=== PATIENT | female | born 1970 | race Caucasian/White ===

== ENCOUNTER 2024-03-01 11:24 | Outpatient (CLI) | payer BC, SELFPAY ==
--- OUTSIDE RECORDS SUMMARY | 2024-03-01 11:27 | XMS_ITS ---
Author Organization [facility] Address [address] [place] [address] Care Team Providers Care Marine Consultant Name Role Phone None, No PCP Primary Care Provider Mariela Love Unavailable [phone] Kimani Alcantara Unavailable [phone] REASON FOR VISIT Colonoscopy referral Encounters Encounter Location Date Provider Diagnosis [facility] [address] [place] [address] 02/27/2024 Kimani Alcantara Plan Of Treatment No Information Progress Notes * Connie GOODEN DDOB:1970 (53 yo F)Acc No.[id number]:02/27/2024 Patient:?Connie GOODEN :1970???Age:53 Y???Sex:Female [facility] [place] [place], [address] * true * Date:? 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
--- OUTSIDE RECORDS SUMMARY | 2024-03-01 11:28 | XMS_ITS | Clinical Summary ---
Author Organization [facility] Address [address] [place] [address] Care Team Providers Care Whiskey Filterer Name Role Phone Librado Nelson MD Primary Care Provider [phone] Family History Medical History Relation Comments Breast Cancer Maternal Grandmother Relation Status Comments Maternal Grandmother Social History Tobacco Use Types Packs/Day Years Used Date Smoking Tobacco: Never Assessed Adolescent Education Answer Date Record ed Getting School Help Needed Not on file 01/08 Comments Unknown Sex and Gender Information Value Date Recorded Sex Assigned at Not on file Legal Sex Female 5:54 PM CDT Gender Identity Not on file Sexual Orientation Not on file Plan of Treatment Health Maintenance Due Date Last Done Comments ADVANCE CARE PLANNING 1970 ANNUAL REVIEW OF HM ORDERS 1972 CT COLONOGRAPHY 1972 FIT 1972 FLEX SIG 1972 GLUCOSE 1972 sDNA (Cologuard) 1972 COLONOSCOPY 1982 COLORECTAL CANCER SCREENING 1982 HIV SCREENING 09/10/1987 HEPATITIS C SCREENING 1990 HEPATITIS B IMMUNIZATION (1 of 3 - 19+ 3-dose series) 09/10/1991 LIPID 2012 DTAP/TDAP/TD IMMUNIZATION (2 - Td or Tdap) 07/31/2021 08/01/2011 ZOSTER IMMUNIZATION (1 of 2) 2022 YEARLY PREVENTIVE VISIT 02/16/2023 02/16/2022, 01/20 PHQ-2 (once per calendar year) 2023 COVID-19 Vaccine (3 - season) 2023 09/28/2020, 08/31/2020 INFLUENZA VACCINE (#1) 2023 PAP 01/21/2024 01/20/2021, 01/20/2021 MAMMO SCREENING 03/26/2024 03/26/2022, 02/17, 02/07/2020, Additional history exists RSV VACCINE (1 - 1-dose 75+ series) 09/10/2047 HPV IMMUNIZATION Aged Out No longer e ligible based on patient's age to complete this topic MENINGITIS IMMUNIZATION Aged Out No l onger eligible based on patient's age to complete this topic Pneumococcal Vaccine: Pediatrics (0 to 5 Years) and At-Risk Patients (6 to 64 Years) Aged Out No longer eligible based on patient's age to complete this topic RSV MONOCLONAL ANTIBODY Aged Out No l onger eligible based on patient's age to complete this topic Procedures Procedure Name Priority Date/Time Associated Diagnosis Comments MA SCREENING DIGITAL BILATERAL Routine 03/26/2022 7:13 AM ELECTRONIC ORGAN TECHNICIAN Visit for screening from Last 3 Months or Most Recently Relevant to Health Maintenance Results * MA SCREENING DIGITAL BILATERAL (03/26/2022 7:13 AM ELECTRONIC ORGAN TECHNICIAN) Anatomical Region Laterality Modality Breast Bilateral Mammography Impressions 03/29/2022 8:21 AM ELECTRONIC ORGAN TECHNICIAN IMPRESSION: ACR BI-RADS Category 1: Negative RECOMMENDED FOLLOW-UP: Annual routine screening mammogram The results and recommendations of this examination will be communicated to the patient. DO Blanca You 03/29/2022 8:21 AM ELECTRONIC ORGAN TECHNICIAN BILATERAL FULL FIELD DIGITAL SCREENING MAMMOGRAM Performed on: 03/26/22 Compared to: 03/16/2021, 02/07/2020, 11/02/2018, 06/08/2017, 02/26/2015, and 02/14/2014 Technique: This study was evaluated with the assistance of Computer-Aided Detection. Findings: The breasts are heterogeneously dense, which may obscure small masses. ??There is no radiographic evidence of malignancy. Librado Nelson MD IMG MAMMOGRAPHY ORDERABLES Final Result from Last 3 Months or Most Recently Relevant to Health Maintenance Insurance BC OUT OF STATE Care Teams Whiskey Filterer Relationship Specialty Start Date End Date Librado Nelson MD [facility] [address] [place], [place] [id number] PCP - General Family Practice 12/04/19
--- OUTSIDE RECORDS SUMMARY | 2024-03-01 11:28 | XMS_ITS | Clinical Summary ---
Author Organization [facility] Address [place], [place] [address] Care Team Providers Care Environmental Health And Safety Manager Name Role Phone Pcp, No Primary Care Provider Unavailabl e Allergies No known active allergies Medications Medication Sig Dispensed Refills Start Date End Date Status BLISOVI FE 1.5/30, 28, 1.5 mg-30 mcg (21)/75 mg (7) tablet TK 1 T PO QD 4 03/28/2018 Active Active Problems No known active problems Immunizations Name Administration Dates Next Due Tdap 08/01/2011 Social History Tobacco Use Types Packs/Day Years Used Date Smoking Tobacco: Never Smokeless Tobacco: Never Alcohol Use Standard Drinks/Week Comments Yes 2 (1 standard drink = 0.6 oz pur e alcohol) PHQ-2 Answer Date Recorded PHQ-2 Score 0 06/19/2018 Sex and Gender Information Value Date Recorded Sex Assigned at Not on file Gender Identity Not on file Sexual Orientation Not on file Obstetrics History Last Filed Vital Signs Vital Sign Reading Time Taken Comments Blood Pressure 110/70 04/07/2018 7:55 AM AUTOMATION AND CONTROLS INSTRUCTOR Pulse 72 04/07/2018 7:55 AM AUTOMATION AND CONTROLS INSTRUCTOR Temperature - - Respiratory Rate 14 04/07/2018 7:55 AM AUTOMATION AND CONTROLS INSTRUCTOR Oxygen Saturation - - Inhaled Oxygen Concentration - - Weight 65.8 kg (145 lb) 04/07/2018 7:55 AM AUTOMATION AND CONTROLS INSTRUCTOR Height 163.8 cm (5' 4.5) 04/07/2018 7:55 AM AUTOMATION AND CONTROLS INSTRUCTOR Body Mass Index 24.5 04/07/2018 7:55 AM AUTOMATION AND CONTROLS INSTRUCTOR Plan of Treatment Health Maintenance Due Date Last Done Comments HIV for age 15-65 09/10/1987 Hepatitis C screening for ag e 18-79 1990 Pap test for age 21-65 1993 Colonoscopy through age 75 2017 BMI (ht and wt on same day) for age 18+ 04/07/2019 04/07/2018 Depression screening for age 12+ 04/10/2019 04/10/2018, 04/07/2018 Mammogram for age 45-75 04/21/2019 04/21/19 19, 02/26/2015 Tetanus booster 07/31/2021 08/01/2011 Zoster (shingles) series for age 50+ (1 of 2) 2022 Lipids for age 45-75 04/07/2023 04/07/2018 COVID-19 vaccine series ( season) 2023 Influenza for age 50-64 12/18/2023 Tdap Completed 08/01/2011 Pneumococcal series for age 6-64 Aged Out No longer eligible b ased on patient's age to complete this topic Procedures Procedure Name Priority Date/Time Associated Diagnosis Comments SCAN-MAMMOGRAPHY REPORT 04/21/2018 12:00 AM AUTOMATION AND CONTROLS INSTRUCTOR LIPID PANEL W REFLEX MEASURED LDL Routine 04/07/2018 8:20 AM AUTOMATION AND CONTROLS INSTRUCTOR Lipid screening from Last 3 Months or Most Recently Relevant to Health Maintenance Results * SCAN-MAMMOGRAPHY REPORT (04/21/2018 12:00 AM AUTOMATION AND CONTROLS INSTRUCTOR) Anatomical Region Laterality Modality Other Scanner OTHER * LIPID PANEL W REFLEX MEASURED LDL [[id number]] (04/07/2018 8:20 AM AUTOMATION AND CONTROLS INSTRUCTOR) CHOLESTEROL,TOTAL 187 100 - 199 mg/dL 04/07/2018 5:38 PM AUTOMATION AND CONTROLS INSTRUCTOR [facility] TRIGLYCERIDES 94 <150 mg/dL 04/07/2018 5:38 PM AUTOMATION AND CONTROLS INSTRUCTOR [facility] HDL CHOLESTEROL 53 >40 mg/dL 8 5:38 PM AUTOMATION AND CONTROLS INSTRUCTOR [facility] NON-HDL CHOLESTEROL 134 <145 mg/dl 04/07/2018 5:38 PM AUTOMATION AND CONTROLS INSTRUCTOR [facility] CHOL/HDL RATIO 3.53 <4.50 04/07/2018 5:38 PM AUTOMATION AND CONTROLS INSTRUCTOR [facility] LDL CHOLESTEROL 115 <=130 mg/dL 04/07/2018 5:38 PM AUTOMATION AND CONTROLS INSTRUCTOR [facility] PROVIDER ORDERED STATUS RANDOM 04/07/2018 5:38 PM AUTOMATION AND CONTROLS INSTRUCTOR [facility] Blood BLOOD SPECIMEN / Unknown Venipuncture / Unknown 04/07/2018 8:20 AM AUTOMATION AND CONTROLS INSTRUCTOR 04/07/2018 11:57 AM AUTOMATION AND CONTROLS INSTRUCTOR Rohini Montoya NP CHEMISTRY [facility] [address] [place] [address], from Last 3 Months or Most Recently Relevant to Health Maintenance Care Teams Environmental Health And Safety Manager Relationship Specialty Start Date End Date Pcp, No . PCP - General 03/31/18
--- OUTSIDE RECORDS SUMMARY | 2024-03-01 11:28 | XMS_ITS | Patient Health Record ---
Author Organization [facility] Address [address] [place] [address] Care Team Providers Care Entertainment Reporter Name Role Phone None, No PCP Primary Care Provider Mariela Love Unavailable [phone] Hemalheidi Kimani Unavailable [phone] Allergies No Known Allergies Results Component Value Reference Range Notes LIPID PANEL Reviewed date:02/28/2024 01:42:13 PM Interpretation: Performing Lab:[facility], [facility] [id number] [id number] Stephane Gruber Notes/Report: CHOLESTEROL, TOTAL 208 <200 mg/dL HDL CHOLESTEROL 49 > OR = 50 mg/dL TRIGLYCERIDES 214 <150 mg/dL If a non-fasting specimen was collected, consider repeat triglyceride testing on a fasting specimen if clinically indicated. Vlad et al. J. of Clin. Lipidol. 2015;9:129-169. LDL-CHOLESTEROL 126 Reference range: <100 Desirable range <100 mg/dL for primary prevention; <70 mg/dL for patients with CHD or diabetic patients with > or = 2 CHD risk factors. LDL-C is now calculated using the Lalo-Luna calculation, which is a validated novel method providing better accuracy than the Friedewald equation in the estimation of LDL-C. Lalo SS et al. MARYELLEN. 2013;310(19): 6359-5132 (http://education.[employer] Max-Wellness.com/faq/YUS701) CHOL/HDLC RATIO 4.2 <5.0 (calc) NON HDL CHOLESTEROL 159 <130 mg/dL (calc) For patients with diabetes plus 1 major ASCVD risk factor, treating to a non-HDL-C goal of <100 mg/dL (LDL-C of <70 mg/dL) is considered a therapeutic option. HEMOGLOBIN A1c Reviewed date:02/28/2024 07:39:36 AM Interpretation: Performing Lab:[facility], [facility] [address], [place] Stephanexu Gruber Notes/Report: HEMOGLOBIN A1c 5.4 <5.7 % of total Hgb For the purpose of screening for the presence of diabetes: <5.7% Consistent with the absence of diabetes 5.7-6.4% Consistent with increased risk for diabetes (prediabetes) > or =6.5% Consistent with diabetes This assay result is consistent with a decreased risk of diabetes. Currently, no consensus exists regarding use of hemoglobin A1c for diagnosis of diabetes in children. According to [place] Diabetes Association (ADA) guidelines, hemoglobin A1c <7.0% represents optimal control in non- diabetic patients. Different metrics may apply to specific patient populations. Standards of Medical Care in Diabetes(ADA). Reason For Referral Reason Hospital Diagnosis 1 Colon cancer screeni (Z12.11) Referral Organization [facility] Referring Provider First Name Kimani Referring Provider Last Name Maricruz Referring Provider Speciality Nurse Prac titioner Referred Provider Specialty Gastroentero logy General Notes Kimani Alcantara 02/26 09:27:14 AM MANAGER PSYCHOLOGY > Please resend referral for screening colonoscopy to [facility]. Referral was sent last year, but pt. didn't schedule. Plan to resent a new referral since it has been 1 year since last referral sent. Thanks. Clinical Notes Cale Bucio 02/2024 10:23:12 AM > Referral sent to [facility]. P: [phone] F: [phone] CTC Referral Priority Routine Medications Medication SIG (Take, Route, Frequency, Duration) Notes Start Date End Date Status 1.5-30 MG-MCG 1 tablet Orally Once a day for 90 days Active Valtrex 500 MG 1 tablet Orally twic e a day for 3 days Active Immunizations Vaccine Route Administration Date Status Comme nts Tdap (Adacel) FP IM Intramuscular 02/24/2023 Administered Social History Tobacco Use: Social History Observation Description Date Details (start date - stop date) Never Smoker NA - NA Tobacco Use/Smoking Question Answer Notes Are you a nonsmoker Alcohol Screen (Audit-C) Question Answer Notes Did you have a drink contain ing alcohol in the past year? Yes How often did you have a dri nk containing alcohol in the past year? Monthly or less (1 point) How many drinks did you have on a typical day when you were drinking in the past year? 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) Active confirmed Problem Ectropion of cervix (08198267) Ectropion of cervix (N86) Active confirmed Problem Herpes simplex of female genitalia (696270974) Genital herpes in women (A60.09) Active confirmed Vital Signs Blood pressure diastolic 70 mm Hg 02/27/2024 Height 64 in 02/27/2024 Blood pressure systolic 122 mm Hg 02/27/2024 Weight 161.4 lbs 02/27/2024 BMI 27.7 kg/m2 02/27/2024 Encounters Encounter Location Date Provider Diagnosis [facility] [address] [place] [address] 02/27/2024 Kimani Alcantara Oral contraceptive p ill surveillance Z30.41 ; Well woman exam with routine gynecological exam Z01.419 ; Ectropion of cervix N86 ; Herpes simplex vulvovaginitis A60.04 ; Colon cancer screening Z12.11 ; Diabetes mellitus screening Z13.1 and Lipid screening Z13.220 [facility] [address] [place] [address] 02/27/2024 Kimani Alcantara Assessments Encounter Date Diagnosis (ICD Code) Assessment Notes Treat ment Notes Treatment Clinical Notes 02/27/2024 Oral contraceptive pill surveillance (ICD-10 - Z30.41) Desires to continue on current OCP for the next 4 months Advise discontinuing after 4th pack is completed to observe for ongoing menses etc. Discussed possible associated perimenopause/menop ause symptoms she may experience including vasomotor symptoms, skin/hair changes, mood fluctuations, vaginal dryness, decrease in energy We discussed if she wants to considering transitioning to estradiol and progesterone HRT immediately after stopping OCP's she can, otherwise can see how she does just stopping OCP's. May still cycle regularly or irregularly on her own as long as bleeding patterns are manageable and she is not having other concerning symptoms no HRT is necessary. If she wants to discuss her options further I advise a televisit or in person follow up closer to when she plans to discontinue OCPs (06/2024) for further discussion and counseling. 02/27/2024 Well woman exam with routine gynecological exam (ICD-10 - Z01.419) Exercise: encouraged regular daily exercise High calcium diet encouraged, vitamin D supplement daily Breast awareness discussed, annual mammogram screening recommended starting at age 40 Mammogram: scheduled 03/01/24 at [facility] Colonoscopy: agrees to referral being resent to [facility] Pap/HPV: completed/up to date Contraception: OCPs, plans to take break in 06/2024. We discussed observations of cycles vs. considering starting HRT. labs: lipids and HgA1c today Tdap up to date /Flu vaccine declined Follow up annually or PRN 02/27/2024 Ectropion of cervix (ICD-10 - N86) Minimal friability on exam Pap/HPV negative 02/2023 Discussed could be related to OCP she is on 02/27/2024 Herpes simplex vulvovaginitis (ICD-10 - A60.04) No outbreaks since primary outbreak in 2022 Has antiviral on hand to take on first signs of out break (vulvar burning, itching, painful lesions) Will refill x 1 year 02/27/2024 Colon cancer screening (ICD-10 - Z12.11) Agreeable to resending referral for screening colonoscopy to [facility] 02/27/2024 Diabetes mellitus screening (ICD-10 - Z13.1) 02/27/2024 Lipid screening (ICD-10 - Z13.220) 02/27/2024 Other Plan Of Treatment No Information Insurance Providers Payer Name Payer Address Payer Phone Subscriber Number Group Number Insured Name Patient Relationship to Insured Coverage Start Date Coverage End Date BCBS - (Client Bill) [address] [place] [id number] Connie Gooden Self - patient is the insured Medical (General) History Medical History History ICD Code eczema HSV Surgical History Surgery Date(Month/Year) Jaw surgery 1996
--- OUTSIDE RECORDS SUMMARY | 2024-03-01 11:28 | XMS_ITS | Referral Summary ---
Author Organization [facility] Address [address] [place] [address] Care Team Providers Care Quality Specialist Name Role Phone Librado Nelson MD Primary Care Provider [phone] Social History Tobacco Use Types Packs/Day Years Used Date Smoking Tobacco: Never Assessed Adolescent Education Answer Date Record ed Getting School Help Needed Not on file 01/08 Comments Unknown Sex and Gender Information Value Date Recorded Sex Assigned at Not on file Legal Sex Female 5:54 PM CDT Gender Identity Not on file Sexual Orientation Not on file Plan of Treatment Not on file Procedures Procedure Name Priority Date/Time Associated Diagnosis Comments MA SCREENING DIGITAL BILATERAL Routine 03/26/2022 7:13 AM TOOL REPAIRER BENCH Visit for screening from Last 3 Months or Most Recently Relevant to Health Maintenance Results * MA SCREENING DIGITAL BILATERAL (03/26/2022 7:13 AM TOOL REPAIRER BENCH) Anatomical Region Laterality Modality Breast Bilateral Mammography Impressions 03/29/2022 8:21 AM TOOL REPAIRER BENCH IMPRESSION: ACR BI-RADS Category 1: Negative RECOMMENDED FOLLOW-UP: Annual routine screening mammogram The results and recommendations of this examination will be communicated to the patient. DO Blanca You 03/29/2022 8:21 AM TOOL REPAIRER BENCH BILATERAL FULL FIELD DIGITAL SCREENING MAMMOGRAM Performed [...] Most Recently Relevant to Health Maintenance Insurance BCBS OUT OF STATE Care Teams Quality Specialist Relationship Specialty Start Date End Date Librado Nelson MD [facility] [address] [place] [address] PCP - General Family Practice 12/04/19
--- OUTSIDE RECORDS SUMMARY | 2024-03-01 11:28 | XMS_ITS ---
Author Organization [facility] Address [address] [place] [address] Care Team Providers Care Talent Development Coordinator Name Role Phone None, No PCP Primary Care Provider Mariela Love Unavailable [phone] Kimani Alcantara Unavailable [phone] Allergies No Known Allergies Results Component Value Reference Range Notes LIPID PANEL Reviewed date:02/28/2024 01:42:13 PM Interpretation: Performing Lab:[facility], [facility] [id number] [facility] [id number] Stephane Gruber Notes/Report: CHOLESTEROL, TOTAL 208 <200 [...] LDL-C. Lalo SS et al. MARYELLEN. 2013;310(19): 9950-7010 (http://education.[email or web address].com/faq/ONU478) CHOL/HDLC RATIO 4.2 <5.0 (calc) NON HDL CHOLESTEROL 159 <130 mg/dL (calc) For patients with diabetes plus 1 major ASCVD risk factor, treating to a non-HDL-C goal of <100 mg/dL (LDL-C of <70 mg/dL) is considered a therapeutic option. HEMOGLOBIN A1c Reviewed date:02/28/2024 07:39:36 AM Interpretation: Performing Lab:[facility], [facility] [address], [place] SpringerTcniSC[address] Stephanexu Gruber Notes/Report: HEMOGLOBIN A1c 5.4 <5.7 [...] diagnosis of diabetes in children. According to [place] Diabetes Association (ADA) guidelines, hemoglobin A1c <7.0% represents optimal control in non- diabetic patients. Different metrics may apply to specific patient populations. Standards of Medical Care in Diabetes(ADA). 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 Medications Medication SIG (Take, Route, Frequency, Duration) Notes Start Date End Date Status 1.5-30 MG-MCG 1 tablet Orally Once a day for 90 days Active Valtrex 500 MG 1 tablet Orally twic e a day for 3 days Active Social History Tobacco Use: Social History Observation [...] Problem Status W/U Status Risk Notes Problem Ectropion of cervix (93139149) Ectropion of cervix (N86) Active confirmed Vital Signs Height 64 in 02/27/2024 Weight 161.4 lbs 02/27/2024 Blood pressure systolic 122 mm Hg 02/27/20 24 Blood pressure diastolic 70 mm Hg 024 BMI 27.7 kg/m2 02/27/2024 Encounters Encounter Location Date Provider Diagnosis [facility] [address] [place] [address] 02/27/2024 Kimani Alcantara Oral contraceptive p ill surveillance Z30.41 ; Well woman exam with routine gynecological exam Z01.419 ; Ectropion of cervix N86 ; Herpes simplex vulvovaginitis A60.04 ; Colon cancer screening Z12.11 ; Diabetes mellitus screening Z13.1 and Lipid screening Z13.220 Assessments Encounter Date Diagnosis (ICD Code) Assessment [...] at age 42 Mammogram: scheduled 03/01/[address] [facility] Colonoscopy: agrees to referral being resent to [facility] Pap/HPV: completed/up to date Contraception: OCPs, plans [...] to resending referral for screening colonoscopy to [facility] 02/27/2024 Diabetes mellitus screening (ICD-10 - Z13.1) 02/27/2024 Lipid screening (ICD-10 - Z13.220) 02/27/2024 Other Plan Of Treatment Medication Medication Name Sig Start Date Stop Date Notes .09/14 1.5-30 MG-MCG 1 tablet O rally Once a day for 90 days Valtrex 500 MG 1 tablet Orally twic e a day for 3 days Treatment Notes Assessment Notes Oral contraceptive pill surveillance Desires to continue on current OCP for the next 4 months Advise discontinuing after 4th pack is completed to observe for ongoing menses etc. Discussed possible associated perimenopause/menopause symptoms she may experience including vasomotor symptoms, [...] OCPs (06/2024) for further discussion and counseling. Well woman exam with routine gynecological exam Exercise: encouraged regular daily exercise High calcium diet encouraged, vitamin D supplement daily Breast awareness discussed, annual mammogram screening recommended starting at age 40 Mammogram: scheduled 03/01/[address] [facility] Colonoscopy: agrees to referral being resent to [facility] Pap/HPV: completed/up to date Contraception: OCPs, plans to take break in 06/2024. We discussed observations of cycles vs. considering starting HRT. labs: lipids and HgA1c today Tdap up to date /Flu vaccine declined Follow up annually or PRN Ectropion of cervix Minimal friability on exam Pap/HPV negative 02/2023 Discussed could be related to OCP she is on Herpes simplex vulvovaginitis No outbreaks since primary outbreak in 2022 Has antiviral on hand to take on first signs of out break (vulvar burning, itching, painful lesions) Will refill x 1 year Colon cancer screening Agreeable to rese nding referral for screening colonoscopy to [facility] Next Appt Details Follow Up: 1 Year, Reason: a nnual exam Progress Notes * Connie GOODEN DDOB:1970 (53 yo F)Acc No.[id number]:02/27/2024 Progress Notes Patient:?Connie GOODEN Provider:?DIMAS Clolado :1970???Age:53 Y???Sex:Female D ate:02/27/2024 Address:[address] [place] [address], [facility] Pcp:No PCP None Subjective: * Chief Complaints: * ???1. ANNUAL. 2. LMP: 2023 BC: OCP. 3. PAP: . 4. MAMMO has one scheduled. 5. CONCERNS: Would like to discuss being taken of OCP- depends on it for period. 6. 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 * HPI: ???*General:? Connie is a 53 year old perimnopausal female here today for an annual exam. PMH notable for genital HSV diagnosed in 07/2022. No outbreaks since. PMH reviewed, no changes reported. Last Pap: 02/24/23, Results: neg/neg hrHPV co-testing History of abnormal Pap: LEEP 2008, ASCUS Pap 2011 Mammogram: 03/26/22, negative, scheduled 03/01/24 ([facility]) Family history of breast cancer: maternal grandmother in her 30's LMP:?02/11/24. Menses: Regular, occuring every 28 days, flow is light/moderate in amount, lasting typically 3 days. Dysmenorrhea is absent/mild Sexually active: yes Problems with intercourse: vaginal dryness which she uses lubricant for, low sex drive Contraception: OCP's. Satisfied with current contraception. Understanding that she will need to stop OCP's in the near future. Is hesitant to stop therapy. 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 last year, did not schedule Bone Density: N/A Vaccinations: last Tdap 2022 /flu vaccination: declines. ???Depression Screening:?PHQ-9?Little interest or pleasure in doing things?Not at all ?Feeling down, depressed, or hopeless?Not at all ?Trouble falling or staying asleep, or sleeping too much?Several days ?Feeling tired or having little energy?Not at all ?Poor appetite or overeating?Not at all ?Feeling bad about yourself or that you are a failure, or have let yourself or your family down?Not at all ?Trouble concentrating on things, such as reading the newspaper or watching television?Not at all ?Moving or speaking so slowly that other people could have noticed; or the opposite, being so fidgety or restless that you have been moving around a lot more than usual?Not at all ?Thoughts that you would be better off or of hurting yourself in some way?Not at all ?Total Score?1 ?Interpretation?Minimal Depression * ROS:?General/Constitutional:?Patient denies?fever, chills, fatigue, change in appetite.?Endocrine:?Patient denies?acne, cold intolerance, heat intolerance, hot flashes.?Respiratory:?Patient denies?chest pain, cough, shortness of breath.?Breast:?Patient denies?breast lump or mass, breast pain, breast swelling, nipple discharge.?Cardiovascular:?Patient denies?chest pain, irregular heartbeat, palpitations.?Gastrointestinal:?Patient denies?nausea, vomiting, constipation, diarrhea.?Women Only:?Patient denies?menorrhagia, metrorrhagia, irregular menses, dysmenorrhea, painful intercourse, pelvic pain, vaginal discharge.?Patient complaining of vaginal discomfort during intercourse managed with lubricant, low libido which is not bothersome.?Genitourinary:?Patient denies?stress incontinence, urge incontinence, frequency, urgency, dysuria.?Musculoskeletal:?Patient denies?myalgias, arthralgias.?Skin:?Patient denies?discoloration, changing moles, rash, skin lesion(s) or irritation.?Neurologic:?Patient denies?dizziness, headache, tingling/numbness.?Psychiatric:?Patient denies?anxiety, depression, difficulty sleeping, stressors.? * Medical History:?Eczema, HSV . * Spear Fisher History:?Date of Last Period:?.29.2310.18.//08/2017.? 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 * OB History:?GPAL:?G0.? * Surgical History:?Branden pelaez 1996. * Hospitalization/Major Diagno stic Procedure:?Denies Past Hospitalization. * Family History:?Father: pros shoemaker cancer.? Maternal Grandmother=Breast Cancer. * Social History:?Tobacco Use:?Tobacco Use/Smoking?Are you a?nonsmoker ???Drugs/Alcohol:?Drugs?Have you used drugs other than those for medical reasons in the past 12 months??No ?Alcohol Screen (Audit-C)?Did you have a drink containing alcohol in the past year??Yes ?How often did you have a drink containing alcohol in the past year??Monthly or less (1 point) ?How many drinks did you have on a typical day when you were drinking in the past year??1 or 2 drinks (0 point) ?Points?1 ?Interpretation?Negative ?Caffeine?Intake:?none ?Do you smoke marijuana?: Denies. ?Do you drink alcohol?: Yes, Socially. ???Miscellaneous:?Diet: 3-4 servings of fruits/veggies daily. ?Domestic violence: no. ?Exercise: no. ?Marital status: in relationship with male partner (11 years, not ). * Medications:?Taking 1.5-30 MG-MCG Tablet TAKE 1 TABLET BY MOUTH EVERY DAY , Taking Valtrex 500 MG Tablet 1 tablet Orally twice a day , Medication List reviewed and reconciled with the patient * Allergies:?N.K.D.A. Objective: * Vitals:?Ht: 64 in, Wt:161.4l bs, BP:122/70mm Hg, BMI:27.7Index. * Examination: ???*General Examination: ?GENERAL APPEARANCE:?in no acute distress, well developed, well nourished.?HEAD?normocephalic, atraumatic.?NECK/THYROID:?neck supple, full range of motion, no cervical lymphadenopathy, no thyromegaly.?SKIN:?no suspicious lesions, warm and dry.?HEART:?no murmurs, regular rate and rhythm, S1, S2 normal.?LUNGS:?clear to auscultation bilaterally.?BREASTS:?no dimpling, no discharge, no drainage, no masses palpable bilaterally.?ABDOMEN:?normal, bowel sounds present, soft, nontender, nondistended.?PROVIDER SCRIBE:?vulva and labia without lesions, irritation or masses, vaginal mucosa pink, no abnormal discharge, irritation or lesions, cervix without lesions, abnormal discharge or bleeding, ectropion cervix minimally friable, cervix non tender, uterus anteverted, normal sized without masses, non tender, adnexa without masses and non tender bilaterally, perineum within normal limits, anus within normal limits ?Sisal Picker for exam offered and declined.?PSYCH:?alert, oriented, judgement and insight good, mood/affect full range, speech clear.? Assessment: * Assessment: 1.?Oral contraceptive pill s urveillance - Z30.41???2.?Well woman exam with routine gynecological exam - Z01.419 (Primary)???3.?Ectropion of cervix - N86???4.?Herpes simplex vulvovaginitis - A60.04???5.?Colon cancer screening - Z12.11???6.?Diabetes mellitus screening - Z13.1???7.?Lipid screening - Z13.220??? Plan: * Treatment: 2.?Oral contraceptive pill s urveillance? Refill .09/14 Tablet, 1.5-30 MG-MCG, 1 tablet, Orally, Once a day, 90 days, 90 Tablet, Refills 0.?? Notes: Desires to continue on current OCP for the next 4 months Advise discontinuing after 4th pack is completed to observe for ongoing menses etc. Discussed possible associated perimenopause/menopause symptoms she may experience including vasomotor symptoms, [...] discontinue OCPs (06/2024) for further discussion and counseling.?? 3.?Ectropion of cervix? Notes: Minimal friability on exam Pap/HPV negative 02/2023 Discussed could be related to OCP she is on ?? 4.?Herpes simplex vulvovagin itis? Refill Valtrex Tablet, 500 MG, 1 tablet, Orally, twice a day, 3 days, 6 Tablet, Refills 2.?? Notes: No outbreaks since primary outbreak in 2022 Has antiviral on hand to take on first signs of out break (vulvar burning, itching, painful lesions) Will refill x 1 year?? 5.?Colon cancer screening? Notes: Agreeable to resending referral for screening colonoscopy to [facility]?? 6.?Diabetes mellitus screeni ng?LAB: HEMOGLOBIN A1c ? Value Reference Range ?HEMOGLOBIN A1c 5.4 <5.7 - % of total Hgb * Your screening for prediabet es/diabetes is normal. MaricruzKimani 02/28/2024 07:39:31 AM CONSTRUCTION CREW MEMBER >This lab was reviewed by Kimani Alcantara on 02/28/2024 at 07:39 AM CONSTRUCTION CREW MEMBER 7.?Lipid screening?LAB: LIPID PANEL* ? Value Reference Range ?TRIGLYCERIDES 214 H <150 - mg /dL * ?CHOLESTEROL, TOTAL 208 H <200 - mg/dL * ?HDL CHOLESTEROL 49 L > OR = 50 - mg/dL * ?LDL-CHOLESTEROL 126 H - mg/dL (calc) * ?CHOL/HDLC RATIO 4.2 <5.0 - (calc) * ?NON HDL CHOLESTEROL 159 H <13 0 - mg/dL (calc) * Connie, your cholesterol level s are consistent with results last year showing elevated triglycerides, low HDL, and mildly elevated LDL. If you were fasting at the time of your labs then I would advise establishing with a PCP for ongoing monitoring and discussion of recommendations for management. I know you had desired to move care to [facility] and if you need help doing this I can send a referral to get the process started.Maricruz Kimani 02/28/2024 01:42:11 PM CONSTRUCTION CREW MEMBER >This lab was reviewed by Kimani Alcantara on 02/28/2024 at 13:42 PM CONSTRUCTION CREW MEMBER * Procedure Codes:?30460 BRIEF EMOTIONAL/BEHAV ASSMT, Modifiers: 59 , 47319 PELVIC EXAMINATION, 73209 GLYCATED HEMOGLOBIN TEST, Modifiers: 90 , 65728 LIPID PANEL, Modifiers: 90 , 52588 VENIPUNCT, ROUTINE* * Preventive Medicine:? ??YOUR PREVENTIVE WELLNESS PLAN:?Breast Cancer Screening (Mammogram):?My last mammogram was done on:?03/26/2022 Negative ?Cervical Cancer Screening (Pap Smear):?My last Pap smear was done on:?01/20/2021 NILM ?Osteoporosis Screening (Bone Density Measurement):?My last bone density was done on:?Never ?Colorectal Cancer Screening:?Last Done Colonoscopy?Normal ?Depression Screening:?Screening for depression was last done on:?02/16/2022 * Follow Up:?1 Year (Reason: a nnual exam) Care Plan: * Problems:? * Images: Billing Information: * Visit Code:? 33766 Preventive Care Est Pt. Age 40-64. * Procedure Codes:? 38719 BRIEF EMOTIONAL/BEHAV ASSMT. Modifiers: 59 52998 PELVIC EXAMINATION. 97700 GLYCATED HEMOGLOBIN TEST. Modifiers: 90 47477 LIPID PANEL. Modifiers: 90 23621 VENIPUNCT, ROUTINE*. * TRUCTION CREW MEMBER Sign off status: Completed true * Provider:?DIMAS Collado Date:?02/16 Generated for Braina simmons/Joel/Sonaliitting on:?03/01/2024 11:27 AM CONSTRUCTION CREW MEMBER History and Physical Notes * HPI (History of Present Illness) Category Sub-Category Detail Notes Depression Screening PHQ-9 Little inte rest or pleasure in doing things: Not at all Feeling down, depressed, or hopeless: No t at all Trouble falling or staying asleep, or sl eeping too much: Several days Feeling tired or having little energy: N ot at all Poor appetite or overeating: Not at all Feeling bad about yourself o r that you are a failure, or have let yourself or your family down: Not at all Trouble concentrating on thi ngs, such as reading the newspaper or watching television: Not at all Moving or speaking so slowly that other people could have noticed; or the opposite, being so fidgety or restless that you have been moving around a lot more than usual: Not at all Thoughts that you would be b mahin off or of hurting yourself in some way: Not at all Total Score: 1 Interpretation: Minimal Depression Examination Category Sub-Category Detail Notes *General Examination GENERAL APPEARANCE: in no a cute distress, well developed, well nourished HEAD normocephalic, atrau matic NECK/THYROID: neck supple, full ra nge of motion, no cervical lymphadenopathy, no thyromegaly HEART: no murmurs, regular rate and rhythm, S1, S2 normal LUNGS: clear to auscultatio n bilaterally ABDOMEN: normal, bowel sounds present, soft, nontender, nondistended SKIN: no suspicious lesion s, warm and dry BREASTS: no dimpling, no disc harge, no drainage, no masses palpable bilaterally PSYCH: alert, oriented, nixon gement and insight good, mood/affect full range, speech clear PROVIDER SCRIBE: vulva and labia with out lesions, irritation or masses, vaginal mucosa pink, no abnormal discharge, irritation or lesions, cervix without lesions, abnormal discharge or bleeding, ectropion cervix minimally friable, cervix non tender, uterus anteverted, normal sized without masses, non tender, adnexa without masses and non tender bilaterally, perineum within normal limits, anus within normal limitsChaperone for exam offered and declined
--- NOTE | 2024-03-01 11:30 | CRLHL7_ITS ---
For Patients: As a result of the Century Cures Act, medical imaging exams and procedure reports are released immediately into your electronic medical record. You may view this report before your referring provider. If you have questions, please contact your health care provider. BILATERAL SCREENING MAMMOGRAM WITH COMPUTER-AIDED DETECTION AND TOMOSYNTHESIS TECHNIQUE: CC and MLO views were obtained. These mammographic images have been obtained using full-field digital technique. These mammographic images were interpreted with the benefit of computer-aided detection. Breast Tomosynthesis was used in this interpretation. COMPARISON FILM: 03/26/22, 03/16/21, 02/07/20. FINDINGS: The breasts are heterogeneously dense, which may obscure small masses. IMPRESSION: There is no radiographic evidence for malignancy. ASSESSMENT: BI-RADS Category 2: Benign RECOMMENDATION: Routine screening mammogram in 1 year. A lay language report of this examination will be provided to the patient. Erwin Sanchez M.D. Diagnostic Radiologist [email or web address] SP/Dictated by: Erwin Sanchez MD @ 03/02/2024 12:00:00 PM (Electronically Signed)
== END 2024-03-01 11:25 | disposition home or self-care (01) ==
LOC: MAMMO 11:26
PROVIDERS: PCP Family Medicine; Visit Provider Nurse Practitioner
DX: Z12.31 Encounter for screening mammogram for malignant neoplasm of breast (principal); R92.333 Mammographic heterogeneous density, bilateral breasts
CPT/HCPCS: 77063; 77067

== ENCOUNTER 2024-11-26 08:05 | Outpatient (CLI) | payer BC, SELFPAY ==
--- NOTE | 2024-11-26 12:37 | P.ANES_ITS ---
Anesthesia Charges Start Date/Time Anesthesia Start Date: 11/26/24 Anesthesia Start Time: 09:45 Stop Date/Time Anesthesia Stop Date: 11/26/24 Anesthesia Stop Time: 10:07 Coding CPT Codes CPT Codes: DWAINE LWR INTST NDKY NOS - 07059 ([id number]) P1 - NORMAL HEALTHY PATIENT, QK - BRANCH ADMINISTRATOR 2-4 CNCRNT ANEAyush PROC, QX - SCIENCE LIAISON SVC W/ MED DIRECTION
--- NOTE | 2024-11-26 12:37 | W.ANESCHARGE ---
Anesthesia Charges Start Date/Time Anesthesia Start Date: 11/26/24 Anesthesia Start Time: 09:45 Stop Date/Time Anesthesia Stop Date: 11/26/24 Anesthesia Stop Time: 10:07 Coding CPT Codes CPT Codes: DWAINE LWR INTST NDSD NOS - 57700 ([id number]) P1 - NORMAL HEALTHY PATIENT, QK - HORSE RACING MANAGER 2-4 CNCRNT ANEAyush PROC, QX - EXHIBIT DISPLAY REPRESENTATIVE SVC W/ MED DIRECTION
--- NOTE | 2024-11-26 13:18 | P.ANES_ITS ---
Anesthesia Charges Start Date/Time Anesthesia Start Date: 11/26/24 Anesthesia Start Time: 09:45 Stop Date/Time Anesthesia Stop Date: 11/26/24 Anesthesia Stop Time: 10:07 Coding CPT Codes CPT Codes: DWAINE LWR INTST NDSC NOS - 28816 ([id number]) P2 - PATIENT W/MILD SYST DISEASE, QK - LOAN EXAMINER 2-4 CNCRNT ANES PROC, QX - PROJECTION ENGINEER SVC W/ MD MED DIRECTION
--- NOTE | 2024-11-26 13:18 | W.ANESCHARGE ---
Anesthesia Charges Start Date/Time Anesthesia Start Date: 11/26/24 Anesthesia Start Time: 09:45 Stop Date/Time Anesthesia Stop Date: 11/26/24 Anesthesia Stop Time: 10:07 Coding CPT Codes CPT Codes: DWAINE LWR INTST NDSC NOS - 38940 ([id number]) P2 - PATIENT W/MILD SYST DISEASE, QK - DISPUTE RESOLUTION SPECIALIST 2-4 CNCRNT ANES PROC, QX - INTRAVENOUS THERAPY NURSE SVC W/ MD MED DIRECTION
== END 2024-11-26 08:06 | disposition home or self-care (01) ==
LOC: OP CLINIC 08:07
PROVIDERS: PCP Nurse Practitioner; Visit Provider Surgery
DX: Z12.11 Encounter for screening for malignant neoplasm of colon (principal); D12.3 Benign neoplasm of transverse colon
CPT/HCPCS: 00811; 00812; 45385; 88305; J2704